=== PATIENT | male | born 1995 | race Caucasian/White ===

== ENCOUNTER → 2020-10-17 | Outpatient (CLI) | payer SELFPAY | LOC: M LABSMTC 13:07 | PROVIDERS: ATTEND Pediatrics | DX: Z20.828 Contact with and (suspected) exposure to other viral communicable diseases (principal) ==

== ENCOUNTER 2025-07-17 21:39 | Emergency (ER) | payer OTHER, SELFPAY ==
[2025-07-17] MEDS: TETANUS/DIPHTH/ACEL. PERTUSSIS 0.5 ML SYR IM.IMMUN ONE (23:17)
[2025-07-17] MEDS: DERMABOND TOPICAL SKIN ADHESIVE TOP ONE (23:20)
[2025-07-17 23:32] VITALS: BP 124/68; TEMP 97.7; O2SAT 98
== END 2025-07-17 23:37 | disposition home or self-care (01) ==
LOC: M ED 21:39
DX: R55 Syncope and collapse (principal); S01.111A Laceration without foreign body of right eyelid and periocular area, initial encounter; I45.10 Unspecified right bundle-branch block; F17.200 Nicotine dependence, unspecified, uncomplicated; F12.10 Cannabis abuse, uncomplicated; F10.10 Alcohol abuse, uncomplicated; Z88.0 Allergy status to penicillin; Y92.89 Other specified places as the place of occurrence of the external cause; Y93.89 Activity, other specified; Y99.9 Unspecified external cause status; Z23 Encounter for immunization